=== PATIENT | male | born 1945 | race Caucasian/White ===

== ENCOUNTER 2017-06-07 07:31 | Outpatient (CLI) | payer OTHER | END 2017-06-07 07:48 | disposition home or self-care (01) | LOC: NUCLEAR 07:31 | DX: I25.10 Atherosclerotic heart disease of native coronary artery without angina pectoris (principal); I65.29 Occlusion and stenosis of unspecified carotid artery | CPT/HCPCS: 78452; 93017; 93880; A9500; J0153 ==